=== PATIENT | male | born 1995 | race Caucasian/White ===

== ENCOUNTER → 2017-03-04 | Day surgery (SDC) | payer BC, OTHER ==
[2017-02-24 08:36] VITALS: BMI 18.0
[~2017-03-04] VITALS: Ht 185.4 cm; Wt 63.0 kg
[~2017-03-04] MED LIST: ACETAMINOPHEN 325 MG TAB ONE; ATROPINE SULFATE 0.1 MG/ML 5ML SYR IV PRN; BACL10TA PO; BOTULINUM TOXIN TYPE A 100 UNIT VIAL XX ONE; CEFTRIAXONE SOD INJ 2 GM in DEXTROSE 5% ADD-VANTAGE 50ML 50 ML IV ONE; DIAZ2TAB PO; DiphenhydrAMINE HCL 50 MG/ML VIAL ONE; ENOX40IN SQ; EpHEDrine SULFATE INJ 50 MG/ML AMP IV PRN; FENTANYL CITRATE INJ 50 MCG/1 ML 2 ML VIAL IV PRN; GABA-113 PO; LACTATED RINGER'S 1000ML 1,000 ML IV SCH; LXT RE; METH-307 PO; MIDAZOLAM HCL 1 MG/ML 2ML VIAL ONE; NITR-5 PO; ONDANSETRON INJ 2 MG/ML 2 ML VIAL IV PRN; OXYB5TAB21 PO; PANT40TA PO; PROMETHAZINE HCL INJ 12.5 MG in SODIUM CHLORIDE 0.9% 50ML 50 ML IV PRN; SERT50TA PO; SODIUM CHLORIDE PO
[2017-03-04 10:20] VITALS: BP 118/66; PULSE 60; TEMP 36.7; O2SAT 98; Ht 185.4 cm; Wt 63.0 kg
--- NOTE | 2017-03-04 13:06 | History & Physical Bridge Note ---
H&P Re-Evaluation Bridge Note: I have examined the patient, reviewed the History & Physical and in the interval since the performance of the History & Physical I have noted the following changes of clinical significance: No changes noted
== END | disposition home or self-care (01) ==
LOC: C.ACU 09:34
PROVIDERS: ATTEND Urology
DX: N31.9 Neuromuscular dysfunction of bladder, unspecified (principal); Z53.8 Procedure and treatment not carried out for other reasons